=== PATIENT | female | born 1970 | race Caucasian/White ===

== ENCOUNTER 2019-05-11 22:14 | Emergency (ER) | payer OTHER, MEDICAID, SELFPAY ==
--- NOTE | 2019-05-11 22:20 | PC.NURSE ---
Pt to ED 11 via EMS, hx Bipolar/manic. States she has not been able to sleep x 1 week, and that causes her to become manic. takes Lamictal and Ativan, but states the Ativan no longer helps her sleep. Was seeing at [facility] last night and eloped. Denies suicidal/homocidal ideations at this time. Verbal safety contract established. NAD. V/S stable at this time. Denies any pain or discomfort. Will continue to monitor.
[2019-05-11 22:25] VITALS: BP 154/90; PULSE 95; RESP 18; TEMP 36.7; O2SAT 97; BMI 41.1
--- NOTE | 2019-05-11 23:20 | ED.PSYCH ---
HPI - Psych <Pao Borges DO - Last Filed: 05/12/19 19:04> General Chief Complaint: Psychiatric Symptoms Stated Complaint: Manic Time Seen by Provider: 05/11/19 23:20 Source: EMS and old records reviewed Mode of arrival: EMS History of Present Illness HPI Narrative: Patient is a 48-year-old female with known history of bipolar presenting with inability to sleep. She has actually seen evaluated for a panic attack at [facility] on 04/23/2019. At which point she was given Ativan which seemed to help. However she states that she has not slept in about a week. She has racing thoughts. She was seen there again yesterday. She states that she called 911 during her panic attack however she now feels like the [place] police are out to get her. At [facility] she states that she did talk to a psychiatrist they did blood work and she had to give a urine sample however she states that she did not need hospitalization and that was not what she wanted. She does not feel that she needs hospitalization now she really just wants to sleep. She denies any homicidal or suicidal ideations. She denies wanting to go to a mental health facility. She states she has not bathed because she does not have water in her house. She is adamant he says he is not eating regularly. Her biggest issues that she just wants to sleep. MD complaint: altered mental status Related Data Previous Rx's Medication Instructions Recorded tramadol 1 - 2 tab PO Q4HP PRN #10 tab 10/11/16 Allergies Allergy/AdvReac Type Severity Reaction Status Date / Time Penicillins [PENICILLINS] Allergy Severe Hives Verified 05/11/19 23:43 Review of Systems <Pao Borges DO - Last Filed: 05/12/19 19:04> Review of Systems GENERAL: Denies chills, fatigue, malaise, fever, sweats, travel HEENT: Denies sinus pain, ear pain, sore throat, difficulty swallowing, neck pain RESPIRATORY: Denies dyspnea, cough, wheezing, hemoptysis, sputum. CARDIOVASCULAR: Denies chest pain, palpitations, orthopnea, edema GASTROINTESTINAL: Denies nausea, vomiting, abdominal pain, diarrhea, constipation, melena. : Denies dysuria, frequency, incontinence, hematuria, urinary retention, flank pain. MUSCULOSKELETAL: Denies weakness, joint pain, or bony pain SKIN: No rash, no erythema, no pruritus NEUROLOGIC: Denies weakness, dizziness, headache, numbness, change in speech, confusion PSYCHIATRIC: See HPI 12 point review of systems is negative except for those stated above and HPI PFSH <Pao Borges DO - Last Filed: 05/12/19 19:04> Medical History Bipolar 1 disorder (Acute) Social History Smoking Status: Current every day smoker Social History Smoking Status: Current every day smoker Exam <Pao Borges DO - Last Filed: 05/12/19 19:04> Initial Vital Signs Initial Vital Signs: Vital Signs Temperature 98.0 F 05/11/19 22:25 Pulse Rate 95 H 05/11/19 22:25 Respiratory Rate 18 05/11/19 22:25 Blood Pressure 154/90 H 05/11/19 22:25 Pulse Oximetry 97 05/11/19 22:25 GENERAL: Awake alert tearful at times HEENT: Head atraumatic,EOMI, pupils reactive, face symmetric CARDIOVASCULAR: Regular rate and rhythm without murmurs, rubs or gallops. RESPIRATORY: Breath sounds equal bilaterally, no wheezes rales or rhonchi. ABDOMEN: Soft, nontender. Normoactive bowel sounds all 4 quadrants. No guarding or rebound. EXTREMITIES: Normal range of motion, no clubbing or edema. Neurovascularly intact NEUROLOGICAL: Alert and oriented x4.Normal gait and speech. SKIN: Warm, dry, no laceration, no petechiae, no rashes or lesions. <Héctor Dwyer DO - Last Filed: 05/12/19 14:46> Initial Vital Signs Initial Vital Signs: Vital Signs Temperature 98.0 F 05/11/19 22:25 Pulse Rate 95 H 05/11/19 22:25 Respiratory Rate 18 05/11/19 22:25 Blood Pressure 154/90 H 05/11/19 22:25 Pulse Oximetry 97 05/11/19 22:25 Course <Pao Borges DO - Last Filed: 05/12/19 19:04> Orders Ordered: Discontinued Medications Olanzapine (Zyprexa Zydis) 10 mg PO NOW ONE Stop: 05/12/19 23:37 Olanzapine (Zyprexa Zydis) 10 mg PO NOW ONE Stop: 05/11/19 23:58 Last Admin: 05/11/19 23:59 Dose: 10 mg Olanzapine (Zyprexa Zydis) 10 mg PO NOW ONE Stop: 05/12/19 10:40 Last Admin: 05/12/19 10:43 Dose: 10 mg Reevaluation(s) Reevaluation #1: sleeping Time: 00:40 Reevaluation #2: Patient continues to sleep Time: 06:36 Vital Signs - 8 hr 05/12/19 10:59 Pulse Rate 72 Respiratory Rate 18 Blood Pressure 125/74 Pulse Oximetry 99 <Héctor Dwyer DO - Last Filed: 05/12/19 14:46> Course Narrative: Received sign-out from evening provider. I performed independent history and physical exam and have no significant additions. Patient denies any suicidal or homicidal ideations, she feels much better. She has the capacity to make these decisions and has the ability to care for herself. She has been given return precautions and had all questions answered to her apparent satisfaction Orders Ordered: Discontinued Medications Olanzapine (Zyprexa Zydis) 10 mg PO NOW ONE Stop: 05/12/19 23:37 Olanzapine (Zyprexa Zydis) 10 mg PO NOW ONE Stop: 05/11/19 23:58 Last Admin: 05/11/19 23:59 Dose: 10 mg Olanzapine (Zyprexa Zydis) 10 mg PO NOW ONE Stop: 05/12/19 10:40 Last Admin: 05/12/19 10:43 Dose: 10 mg Vital Signs - 8 hr 05/12/19 10:59 Pulse Rate 72 Respiratory Rate 18 Blood Pressure 125/74 Pulse Oximetry 99 MDM - Psych <Pao Borges DO - Last Filed: 05/12/19 19:04> [facility] Narrative Medical decision making narrative: The patient is quite adamant about not going to mental health facility. We agree that she will take Zyprexa and see if it helps her. While we wait for records The patient is re-evaluated and sleeping after Zyprexa. Records indicate that she actually had blood work was positive for nitrates in her urine and marijuana. She left the department prior to her tele psych evaluation. Patient signed out to Dr. Dwyer at [facility]. need re-evaluation hopefully after sleeping all night her mental status has improved, however may need social work evaluation and possible placement Discharge Plan Departure Patient Disposition: Home Clinical Impression: Bipolar disorder Qualifiers: Active/Remission status: currently active Current bipolar episode type: manic Current episode severity: mild Qualified Code(s): F31.11 - Bipolar disorder, current episode manic without psychotic features, mild Insomnia Qualifiers: Insomnia type: unspecified Qualified Code(s): G47.00 - Insomnia, unspecified Discharge Date/Time: 05/12/19 10:59 Interventions: ED Discharge Assessment Last Done: 05/12/19 10:59 Instructions: DI for Bipolar Disorder Activity Restrictions/Additional Instructions: *You have been diagnosed with [ bipolar disorder ] *What to do: *Take medications as directed *Follow up with your primary care provider in 2-3 days, call for an appointment. Let them know you were seen in the Emergency Department and that we ask that you be seen in follow up *Return to ER if you should have any new, worsening or concerning symptoms Prescriptions: No Action tramadol 50 MG tablet 1 - 2 tab PO Q4HP PRNQty: 10 RF: 0 Referrals: Ruperto Boyle MD [Primary Care Provider] -
[2019-05-11] MEDS: OLANZapine ODT 10 MG TAB PO (23:59)
--- NOTE | 2019-05-12 00:41 | PC.NURSE ---
Pt sleeping comfortably at this time. NAD. Awaiting on tests for disposition. Will continue to monitor.
[2019-05-12 04:07] VITALS: BP 120/70; PULSE 51; RESP 14; O2SAT 98
[2019-05-12 06:19] VITALS: BP 146/72; PULSE 55; RESP 15; O2SAT 97
[2019-05-12] MEDS: OLANZapine ODT 10 MG TAB PO (10:43)
[2019-05-12 10:59] VITALS: BP 125/74; PULSE 72; RESP 18; O2SAT 99
== END 2019-05-12 10:59 | disposition home or self-care (01) ==
PROVIDERS: Emergency Provider Emergency Medicine; Family Provider Family Medicine; PCP Family Medicine
DX: F31.11 Bipolar disorder, current episode manic without psychotic features, mild (principal); G47.00 Insomnia, unspecified
CPT/HCPCS: 99283